=== PATIENT | female | born 2000 | race Caucasian/White ===

== ENCOUNTER 2019-03-25 18:49 | Emergency (ER) | payer OTHER ==
--- NOTE | 2019-03-25 19:36 | ER Document Report ---
HPI - HPI Patient complains to provider of: ? Time Seen by Provider: 03/25/19 19:24 Pain Level: Denies Context: 18-year-old female presents the emergency department with chief complaint of concern for . LMP February 14 and she missed her most recent. She took 2 home test which were both positive. She denies any fevers, chills, nausea, urinary symptoms. No other complaints - REPRODUCTIVE Reproductive: DENIES: : Past Medical History - Social History Smoking Status: Never Smoker Family History: None Vertical Provider Document - CONSTITUTIONAL Notes: PHYSICAL EXAMINATION: Reviewed vital signs and charting by RN GENERAL: Alert, interacts well. No acute distress. HEAD: Normocephalic, atraumatic. EYES: Pupils equal, round, and reactive to light. Extraocular movements intact. NECK: Full range of motion. Supple. Trachea midline. LUNGS: Clear to auscultation bilaterally, no wheezes, rales, or rhonchi. No respiratory distress. HEART: Regular rate and rhythm. No murmur ABDOMEN: soft, non-tender. No distention. Bowel sounds present EXTREMITIES: Moves all 4 extremities spontaneously. No edema, No cyanosis. PSYCH: Normal affect, normal mood. SKIN: Warm, dry, normal turgor. No rashes or lesions noted. Course - Re-evaluation Re-evalutation: 03/25/19 19:34 Patient well-appearing. I will obtain a urinalysis and urine hCG to ensure that she does not have a UTI and to confirm here. I counseled her about what to expect and anticipatory guidance. UA pending 03/25/19 20:27 Urinalysis did show evidence of urinary tract infection although the sample was contaminated but she had a significant enough W BC burden and large leuk esterase that I will treat. She then stated that she did not want to keep at the at this time. I told her that unless she is within a 72-hour window of having unintended sacs there is nothing we could do for her and she would have to follow-up with an outside resource to obtain the services. Patient understood and agrees with this plan. I will give her 1 dose of Keflex here in the emergency department to start treatment for UTI. Vital signs within normal limits, patient is stable for discharge. - Vital Signs Vital signs: Temp Pulse Resp BP Pulse Ox 98.2 F 70 12 146/72 H 99 03/25/19 18:54 03/25/19 18:54 03/25/19 18:54 03/25/19 18:54 03/25/19 18:54 Discharge - Discharge Clinical Impression: Qualifiers: Weeks of gestation: less than 8 weeks Qualified Code(s): Z3A.01 - Less than 8 weeks gestation of Condition: Good Disposition: HOME, SELF-CARE Additional Instructions: You are seen in the emergency department this evening for a positive test and for urinary tract infection. Your urine shows findings consistent with a urinary tract infection. Please take all the antibiotics as directed even if your symptoms have improved. Please follow-up with your primary care physician as needed. Return to emergency room if you develop fever >101F, persistent vomiting, become lethargic, have severe pain in your sides, or any other symptoms that are concerning to you. Because you are an estimated 5 weeks based on your last menstrual. There is nothing we can do in the emergency department with respect to termination. Please refer to the paper regarding services that the charge nurse made a copy of and you can call that number for further guidance.
[2019-03-25 20:02] LABS: AMORPHOUS SEDIMENT,URINE TRACE /HPF; APPEARANCE,URINE SLIGHTLY-CLOUDY; BILIRUBIN,URINE NEGATIVE (NEGATIVE); COLOR,URINE YELLOW; GLUCOSE, URINE NEGATIVE (NEGATIVE); KETONES,URINE NEGATIVE (NEGATIVE); LEUKOCYTE ESTERASE,URINE LARGE (NEGATIVE); NITRITE,URINE NEGATIVE (NEGATIVE); PROTEIN,URINE NEGATIVE (NEGATIVE); URINE SPECIFIC GRAVITY 1.012; UROBILINOGEN,URINE NEGATIVE mg/dL (<2.0)
[2019-03-25] MEDS ORDERED: CEPHALEXIN 500 MG CAPSULE PO ONE (20:29)
[2019-03-25 21:01] VITALS: BP 117/64
== END 2019-03-25 21:03 | disposition home or self-care (01) ==
LOC: ER 18:49
DX: O26.91 Pregnancy related conditions, unspecified, first trimester (principal); Z3A.01 Less than 8 weeks gestation of pregnancy
CPT/HCPCS: 81001; 81025; 99282